=== PATIENT | male | born 1965 | race Caucasian/White ===

== ENCOUNTER 2019-05-12 03:15 | Inpatient (IN) ==
[2019-05-12] MEDS: HEPARIN DRIP 25,000 UNITS/500 ML PREMIX IV SCH (04:10)
[2019-05-12] MEDS ORDERED: ALBUTEROL 2.5 MG/3 ML NEB RESP TX PRN (04:43)
[2019-05-12] MEDS ORDERED: ONDANSETRON 4 MG/2 ML VIAL IV PRN (04:43)
[2019-05-12] MEDS: PANTOPRAZOLE 40 MG VIAL IV SCH (05:00)
[2019-05-12] MEDS ORDERED: SODIUM CHLORIDE 0.9% 1,000 ML IV SCH ×3 (09:00→11:00)
[2019-05-12] MEDS ORDERED: ALTEPLASE 6 MG in SODIUM CHLORIDE 0.9% 120 ML IV SCH (09:00)
[2019-05-12] MEDS ORDERED: MIDAZOLAM 2 MG/2 ML VIAL ONE ×3 (09:26→16:54)
[2019-05-12] MEDS ORDERED: fentaNYL 100 MCG/2 ML VIAL ONE (09:27)
[2019-05-12] MEDS ORDERED: LIDOCAINE 1% 20 ML VIAL ONE (09:42)
[2019-05-12] MEDS ORDERED: LORazepam 2 MG/1 ML VIAL IV PRN (10:42)
[2019-05-12] MEDS ORDERED: HEPARIN DRIP 25,000 UNITS/500 ML PREMIX IV SCH ×2 (11:00)
[2019-05-12] MEDS ORDERED: APIXABAN 2.5 MG TABLET PO ONE (11:00)
[2019-05-12] MEDS: MORPHINE 4 MG/1 ML VIAL IV PRN ×2 (12:54→21:18)
[2019-05-12] MEDS ORDERED: HYDROmorphone 2 MG/1 ML VIAL IV ONE (16:54)
[2019-05-12] MEDS ORDERED: LIDOCAINE 1%/EPI INJ 20 ML VIAL ONE (16:59)
[2019-05-12] MEDS ORDERED: MIDAZOLAM 2 MG/2 ML VIAL IV ONE (17:00)
[2019-05-12] MEDS ORDERED: LIDOCAINE 2% 20 ML VIAL ONE (17:06)
[2019-05-12] MEDS ORDERED: LIDOCAINE 2% 20 ML VIAL MISC INJ ONE (17:10)
[2019-05-12 17:52] VITALS: BP 95/82
[2019-05-12] MEDS: APIXABAN 5 MG TABLET PO SCH (20:05)
[2019-05-12] MEDS ORDERED: SIMETHICONE CHEW 125 MG TABLET PO SCH (23:00)
[2019-05-12] MEDS ORDERED: SIMETHICONE CHEW 125 MG TABLET PO PRN (23:08)
[2019-05-13 05:06] LABS: Basophils % 0.6 % (0.0-0.8); Eosinophils # 0.3 10*3/uL (0.0-0.87); Eosinophils % 4.6 % (0.00-10.9); Hematocrit 44.6 VOL% (42.0-52.0); Hemoglobin 14.4 GM/DL (14.0-18.0); Immature Granulocytes % 0.4 %; Immature Granulocytes Absolute 0.03 #; Lymphocytes # 1.4 10*3/uL (1.4-4.0); Lymphocytes % 20.4 % (21.2-54.2); Mean Corpuscular HGB Conc 32.3 GM/DL (32-36); Mean Corpuscular Volume 86.9 FL (87-102); Mean Platelet Volume 10.6 FL (9.6-12.0); Monocytes % 8.5 % (1.7-12.7); Neutrophils % 65.5 % (38.7-73.9); Platelet Count 138 T/CUMM (130-400); Red Blood Count 5.13 MC/CUMM (3.8-5.5); Red Cell Distribution Width 13.6 % (9.3-17.3); White Blood Count 6.7 T/CUMM (4-12)
[2019-05-13 05:29] LABS: Albumin 3.2 G/DL (3.4-5.0); Bilirubin,Total 0.9 MG/DL (0.2-1.0); Calcium 8.4 MG/DL (8.5-10.1); Osmolality,Calculated 277.5 MOS/KG (273-304); Total Protein 6.6 G/DL (6.4-8.3)
[2019-05-13] MEDS: PANTOPRAZOLE 40 MG VIAL IV SCH (05:58)
[2019-05-13] MEDS: HEPARIN DRIP 25,000 UNITS/500 ML PREMIX IV SCH (06:17)
[2019-05-13] MEDS: APIXABAN 5 MG TABLET PO SCH (08:56)
== END 2019-05-13 12:43 | disposition home or self-care (01) | DRG 176 ==
LOC: N.CC 03:23 → SUATTDRO 04:05
PROVIDERS: ADMIT Internal Medicine; ATTEND Internal Medicine Geriatric Medicine